=== PATIENT | male | born 1945 ===

== ENCOUNTER 2021-12-06 05:50 | Day surgery (SDC) | payer OTHER ==
[2021-12-06] MEDS ORDERED: ULTRAM50 MG PO (09:29)
[2021-12-06] MEDS ORDERED: TYLENOL ARTHRI650 MG PO (09:29)
[2021-12-06] MEDS ORDERED: NEURONTIN300 MG PO (09:29)
[2021-12-06] MEDS ORDERED: MIRALAX17 GM PO (09:29)
[2021-12-06] MEDS ORDERED: KETO10TA2 PO (09:29)
== END 2021-12-06 11:30 | disposition home or self-care (01) ==
LOC: CIR.AMB 05:50
PROVIDERS: ATTEND Surgery
DX: K42.0 Umbilical hernia with obstruction, without gangrene (principal); Z20.822 Contact with and (suspected) exposure to COVID-19; N40.0 Benign prostatic hyperplasia without lower urinary tract symptoms